=== PATIENT | female | born 1960 | race Caucasian/White ===

== ENCOUNTER → 2016-11-25 | Outpatient (CLI) | payer OTHER ==
[~2016-11-25] VITALS: Ht 154.9 cm; Wt 70.6 kg
[~2016-11-25] MED LIST: ACET-2247 PO; ACYC400T PO; AMLO-511 PO; ASCO500 PO; ASPI81 PO; ATOR40TA28 PO; BACTDSB PO; BISA10S PR; CEPH500 PO; CLOP75 PO; DOXY100C PO; DSS100 PO; GLIP5 PO; HEP5KI SQ; HYDR-3965 PO; HYDR-3971 PO; IBUP-1547 PO; IPRNEB IH; LOSA50TA37 PO; METF850T2 PO; MULT-264 PO; ONDA22I IM; PANT40TA25 PO; ZINC220 PO; [UNRECOGNIZED DRUG - CODE] IV
[2016-11-25 13:52] VITALS: BP 144/68
== END | disposition home or self-care (01) ==
LOC: HBOWC 12:49
PROVIDERS: ATTEND Emergency Medicine
DX: T87.89 Other complications of amputation stump (principal); E11.621 Type 2 diabetes mellitus with foot ulcer; L97.511 Non-pressure chronic ulcer of other part of right foot limited to breakdown of skin; E11.52 Type 2 diabetes mellitus with diabetic peripheral angiopathy with gangrene; I10 Essential (primary) hypertension; Y83.5 Amputation of limb(s) as the cause of abnormal reaction of the patient, or of later complication, without mention of misadventure at the time of the procedure
CPT/HCPCS: 11042

== ENCOUNTER → 2016-12-02 | Outpatient (CLI) | payer OTHER ==
[~2016-12-02] MED LIST changes: -ACET-2247 PO; -BISA10S PR; -DSS100 PO; -HEP5KI SQ; -HYDR-3965 PO; -HYDR-3971 PO; -IBUP-1547 PO; -IPRNEB IH; -ONDA22I IM; -ZINC220 PO; -[UNRECOGNIZED DRUG - CODE] IV
[2016-12-02 08:16] VITALS: BP 147/77
== END | disposition home or self-care (01) ==
LOC: HBOWC 07:19
PROVIDERS: ATTEND Emergency Medicine
DX: T87.89 Other complications of amputation stump (principal); E11.622 Type 2 diabetes mellitus with other skin ulcer; L97.511 Non-pressure chronic ulcer of other part of right foot limited to breakdown of skin; E11.52 Type 2 diabetes mellitus with diabetic peripheral angiopathy with gangrene; I10 Essential (primary) hypertension; Y83.8 Other surgical procedures as the cause of abnormal reaction of the patient, or of later complication, without mention of misadventure at the time of the procedure
CPT/HCPCS: 97597

== ENCOUNTER → 2016-12-08 | Outpatient (CLI) | payer OTHER | END | disposition home or self-care (01) | LOC: HBOWC 09:58 | PROVIDERS: ATTEND Emergency Medicine | DX: T87.89 Other complications of amputation stump (principal); E11.621 Type 2 diabetes mellitus with foot ulcer; L97.511 Non-pressure chronic ulcer of other part of right foot limited to breakdown of skin; I10 Essential (primary) hypertension; E11.52 Type 2 diabetes mellitus with diabetic peripheral angiopathy with gangrene; Y83.5 Amputation of limb(s) as the cause of abnormal reaction of the patient, or of later complication, without mention of misadventure at the time of the procedure | CPT/HCPCS: Z7606; Z7608 ==

== ENCOUNTER → 2016-12-10 | Outpatient (CLI) | payer OTHER | END | disposition home or self-care (01) | LOC: HBOWC 09:58 | PROVIDERS: ATTEND Emergency Medicine | DX: T86.828 Other complications of skin graft (allograft) (autograft) (principal); E11.621 Type 2 diabetes mellitus with foot ulcer; L97.511 Non-pressure chronic ulcer of other part of right foot limited to breakdown of skin; E11.52 Type 2 diabetes mellitus with diabetic peripheral angiopathy with gangrene; I10 Essential (primary) hypertension; Y83.2 Surgical operation with anastomosis, bypass or graft as the cause of abnormal reaction of the patient, or of later complication, without mention of misadventure at the time of the procedure | CPT/HCPCS: Z7606; Z7608 ==

== ENCOUNTER → 2016-12-11 | Outpatient (CLI) | payer OTHER ==
[~2016-12-11] MED LIST changes: +ACET-2247 PO; +ACETAMINOPHEN 500 MG TABLET PO ONE; +BISA10S PR; +CLOTRIMAZOLE 1% 15 GM CREAM TP ONE; +DSS100 PO; +HEP5KI SQ; +HYDR-3965 PO; +HYDR-3971 PO; +IBUP-1547 PO; +IPRNEB IH; +LIDOCAINE HCL/PF 2% 5 ML VIAL IM ONE; +ONDA22I IM; +ZINC220 PO; +[UNRECOGNIZED DRUG - CODE] IV
[2016-12-11 08:56] VITALS: BP 127/65
== END | disposition home or self-care (01) ==
LOC: HBOWC 08:28
PROVIDERS: ATTEND Emergency Medicine
DX: T87.89 Other complications of amputation stump (principal); E11.622 Type 2 diabetes mellitus with other skin ulcer; L97.511 Non-pressure chronic ulcer of other part of right foot limited to breakdown of skin; I10 Essential (primary) hypertension; E11.52 Type 2 diabetes mellitus with diabetic peripheral angiopathy with gangrene; Y83.8 Other surgical procedures as the cause of abnormal reaction of the patient, or of later complication, without mention of misadventure at the time of the procedure
CPT/HCPCS: 11042; J3490; Z7606; Z7608

== ENCOUNTER → 2016-12-14 | Outpatient (CLI) | payer OTHER ==
[~2016-12-14] MED LIST changes: -ACET-2247 PO; -ACETAMINOPHEN 500 MG TABLET PO ONE; -BISA10S PR; -CLOTRIMAZOLE 1% 15 GM CREAM TP ONE; -DSS100 PO; -HEP5KI SQ; -HYDR-3965 PO; -HYDR-3971 PO; -IBUP-1547 PO; -IPRNEB IH; -LIDOCAINE HCL/PF 2% 5 ML VIAL IM ONE; -ONDA22I IM; -ZINC220 PO; -[UNRECOGNIZED DRUG - CODE] IV
== END | disposition home or self-care (01) ==
LOC: HBOWC 08:59
PROVIDERS: ATTEND Emergency Medicine
DX: T87.89 Other complications of amputation stump (principal); E11.621 Type 2 diabetes mellitus with foot ulcer; E11.52 Type 2 diabetes mellitus with diabetic peripheral angiopathy with gangrene; L97.511 Non-pressure chronic ulcer of other part of right foot limited to breakdown of skin; I10 Essential (primary) hypertension; Y83.5 Amputation of limb(s) as the cause of abnormal reaction of the patient, or of later complication, without mention of misadventure at the time of the procedure
CPT/HCPCS: Z7606; Z7608

== ENCOUNTER → 2016-12-15 | Outpatient (CLI) | payer OTHER | END | disposition home or self-care (01) | LOC: HBOWC 09:51 | PROVIDERS: ATTEND Emergency Medicine | DX: T86.828 Other complications of skin graft (allograft) (autograft) (principal); E11.621 Type 2 diabetes mellitus with foot ulcer; L97.511 Non-pressure chronic ulcer of other part of right foot limited to breakdown of skin; E11.52 Type 2 diabetes mellitus with diabetic peripheral angiopathy with gangrene; Y83.2 Surgical operation with anastomosis, bypass or graft as the cause of abnormal reaction of the patient, or of later complication, without mention of misadventure at the time of the procedure | CPT/HCPCS: Z7606; Z7608 ==

== ENCOUNTER → 2016-12-16 | Outpatient (CLI) | payer OTHER | END | disposition home or self-care (01) | LOC: HBOWC 10:03 | PROVIDERS: ATTEND Emergency Medicine | DX: T87.89 Other complications of amputation stump (principal); E11.621 Type 2 diabetes mellitus with foot ulcer; L97.511 Non-pressure chronic ulcer of other part of right foot limited to breakdown of skin; I10 Essential (primary) hypertension; E11.52 Type 2 diabetes mellitus with diabetic peripheral angiopathy with gangrene; Y83.5 Amputation of limb(s) as the cause of abnormal reaction of the patient, or of later complication, without mention of misadventure at the time of the procedure | CPT/HCPCS: Z7606; Z7608 ==

== ENCOUNTER → 2016-12-17 | Outpatient (CLI) | payer OTHER | END | disposition home or self-care (01) | LOC: HBOWC 09:49 | PROVIDERS: ATTEND Emergency Medicine | DX: T86.828 Other complications of skin graft (allograft) (autograft) (principal); E11.621 Type 2 diabetes mellitus with foot ulcer; L97.511 Non-pressure chronic ulcer of other part of right foot limited to breakdown of skin; I10 Essential (primary) hypertension; E11.52 Type 2 diabetes mellitus with diabetic peripheral angiopathy with gangrene; Y83.8 Other surgical procedures as the cause of abnormal reaction of the patient, or of later complication, without mention of misadventure at the time of the procedure | CPT/HCPCS: Z7606; Z7608 ==

== ENCOUNTER → 2016-12-18 | Outpatient (CLI) | payer OTHER ==
[~2016-12-18] MED LIST changes: +CLOTRIMAZOLE 1% 15 GM CREAM TP ONE; +LIDOCAINE HCL 2% 5 ML JELLY TP ONE
[2016-12-18 10:04] VITALS: BP 106/58
== END | disposition home or self-care (01) ==
LOC: HBOWC 09:00
PROVIDERS: ATTEND Emergency Medicine
DX: T87.89 Other complications of amputation stump (principal); E11.621 Type 2 diabetes mellitus with foot ulcer; L97.511 Non-pressure chronic ulcer of other part of right foot limited to breakdown of skin; E11.52 Type 2 diabetes mellitus with diabetic peripheral angiopathy with gangrene; I10 Essential (primary) hypertension; Y83.5 Amputation of limb(s) as the cause of abnormal reaction of the patient, or of later complication, without mention of misadventure at the time of the procedure
CPT/HCPCS: 97597; Z7606; Z7608

== ENCOUNTER → 2016-12-21 | Outpatient (CLI) | payer OTHER ==
[~2016-12-21] MED LIST changes: -CLOTRIMAZOLE 1% 15 GM CREAM TP ONE; -LIDOCAINE HCL 2% 5 ML JELLY TP ONE
== END | disposition home or self-care (01) ==
LOC: HBOWC 10:04
PROVIDERS: ATTEND Emergency Medicine
DX: T87.89 Other complications of amputation stump (principal); E11.621 Type 2 diabetes mellitus with foot ulcer; L97.511 Non-pressure chronic ulcer of other part of right foot limited to breakdown of skin; I10 Essential (primary) hypertension; E11.51 Type 2 diabetes mellitus with diabetic peripheral angiopathy without gangrene; Y83.5 Amputation of limb(s) as the cause of abnormal reaction of the patient, or of later complication, without mention of misadventure at the time of the procedure

== ENCOUNTER → 2016-12-22 | Outpatient (CLI) | payer OTHER | END | disposition home or self-care (01) | LOC: HBOWC 10:09 | PROVIDERS: ATTEND Emergency Medicine Undersea and Hyperbaric Medicine | DX: T87.89 Other complications of amputation stump (principal); E11.621 Type 2 diabetes mellitus with foot ulcer; L97.511 Non-pressure chronic ulcer of other part of right foot limited to breakdown of skin; I10 Essential (primary) hypertension; E11.51 Type 2 diabetes mellitus with diabetic peripheral angiopathy without gangrene; Y83.5 Amputation of limb(s) as the cause of abnormal reaction of the patient, or of later complication, without mention of misadventure at the time of the procedure ==

== ENCOUNTER → 2016-12-23 | Outpatient (CLI) | payer OTHER | END | disposition home or self-care (01) | LOC: HBOWC 10:32 | PROVIDERS: ATTEND Emergency Medicine | DX: T87.89 Other complications of amputation stump (principal); E11.621 Type 2 diabetes mellitus with foot ulcer; L97.511 Non-pressure chronic ulcer of other part of right foot limited to breakdown of skin; I10 Essential (primary) hypertension; E11.51 Type 2 diabetes mellitus with diabetic peripheral angiopathy without gangrene; Y83.5 Amputation of limb(s) as the cause of abnormal reaction of the patient, or of later complication, without mention of misadventure at the time of the procedure | CPT/HCPCS: Z7606; Z7608 ==

== ENCOUNTER → 2016-12-24 | Outpatient (CLI) | payer OTHER | END | disposition home or self-care (01) | LOC: HBOWC 10:06 | PROVIDERS: ATTEND Emergency Medicine | DX: T86.828 Other complications of skin graft (allograft) (autograft) (principal); E11.621 Type 2 diabetes mellitus with foot ulcer; L97.511 Non-pressure chronic ulcer of other part of right foot limited to breakdown of skin; E11.52 Type 2 diabetes mellitus with diabetic peripheral angiopathy with gangrene; I10 Essential (primary) hypertension; Y83.2 Surgical operation with anastomosis, bypass or graft as the cause of abnormal reaction of the patient, or of later complication, without mention of misadventure at the time of the procedure | CPT/HCPCS: Z7606; Z7608 ==

== ENCOUNTER → 2016-12-25 | Outpatient (CLI) | payer OTHER ==
[2016-12-25 10:37] VITALS: BP 151/62
== END | disposition home or self-care (01) ==
LOC: HBOWC 10:08
PROVIDERS: ATTEND Emergency Medicine
DX: T87.89 Other complications of amputation stump (principal); E11.621 Type 2 diabetes mellitus with foot ulcer; L97.511 Non-pressure chronic ulcer of other part of right foot limited to breakdown of skin; I10 Essential (primary) hypertension; E11.51 Type 2 diabetes mellitus with diabetic peripheral angiopathy without gangrene; Y83.5 Amputation of limb(s) as the cause of abnormal reaction of the patient, or of later complication, without mention of misadventure at the time of the procedure
CPT/HCPCS: 97597; G0277

== ENCOUNTER → 2016-12-28 | Outpatient (CLI) | payer OTHER | END | disposition home or self-care (01) | LOC: HBOWC 09:24 | PROVIDERS: ATTEND Emergency Medicine Undersea and Hyperbaric Medicine | DX: T87.89 Other complications of amputation stump (principal); E11.621 Type 2 diabetes mellitus with foot ulcer; L97.511 Non-pressure chronic ulcer of other part of right foot limited to breakdown of skin; I10 Essential (primary) hypertension; E11.52 Type 2 diabetes mellitus with diabetic peripheral angiopathy with gangrene; Y83.5 Amputation of limb(s) as the cause of abnormal reaction of the patient, or of later complication, without mention of misadventure at the time of the procedure | CPT/HCPCS: Z7606; Z7608 ==

== ENCOUNTER → 2016-12-29 | Outpatient (CLI) | payer OTHER | END | disposition home or self-care (01) | LOC: HBOWC 07:46 | PROVIDERS: ATTEND Emergency Medicine Undersea and Hyperbaric Medicine | DX: T86.828 Other complications of skin graft (allograft) (autograft) (principal); E11.621 Type 2 diabetes mellitus with foot ulcer; L97.511 Non-pressure chronic ulcer of other part of right foot limited to breakdown of skin; I10 Essential (primary) hypertension; E11.52 Type 2 diabetes mellitus with diabetic peripheral angiopathy with gangrene; Y83.8 Other surgical procedures as the cause of abnormal reaction of the patient, or of later complication, without mention of misadventure at the time of the procedure ==

== ENCOUNTER → 2016-12-30 | Outpatient (CLI) | payer OTHER ==
[~2016-12-30] MED LIST changes: -BACTDSB PO; -DOXY100C PO
== END | disposition home or self-care (01) ==
LOC: HBOWC 07:39
PROVIDERS: ATTEND Emergency Medicine
DX: T86.828 Other complications of skin graft (allograft) (autograft) (principal); E11.621 Type 2 diabetes mellitus with foot ulcer; L97.511 Non-pressure chronic ulcer of other part of right foot limited to breakdown of skin; I10 Essential (primary) hypertension; E11.52 Type 2 diabetes mellitus with diabetic peripheral angiopathy with gangrene; Y83.2 Surgical operation with anastomosis, bypass or graft as the cause of abnormal reaction of the patient, or of later complication, without mention of misadventure at the time of the procedure

== ENCOUNTER → 2016-12-31 | Outpatient (CLI) | payer OTHER ==
[~2016-12-31] MED LIST changes: +BACTDSB PO; +DOXY100C PO
[2017-01-01 11:17] VITALS: BP 138/65
== END | disposition home or self-care (01) ==
LOC: HBOWC 07:35
PROVIDERS: ATTEND Emergency Medicine
DX: T86.828 Other complications of skin graft (allograft) (autograft) (principal); E11.621 Type 2 diabetes mellitus with foot ulcer; L97.511 Non-pressure chronic ulcer of other part of right foot limited to breakdown of skin; I10 Essential (primary) hypertension; E11.52 Type 2 diabetes mellitus with diabetic peripheral angiopathy with gangrene; Y83.8 Other surgical procedures as the cause of abnormal reaction of the patient, or of later complication, without mention of misadventure at the time of the procedure

== ENCOUNTER → 2017-01-01 | Outpatient (CLI) | payer OTHER ==
[~2017-01-01] MED LIST changes: -BACTDSB PO; -DOXY100C PO
[2017-01-01 10:45] VITALS: BP 138/65
== END | disposition home or self-care (01) ==
LOC: HBOWC 07:49
PROVIDERS: ATTEND Emergency Medicine
DX: T86.828 Other complications of skin graft (allograft) (autograft) (principal); E11.621 Type 2 diabetes mellitus with foot ulcer; L97.511 Non-pressure chronic ulcer of other part of right foot limited to breakdown of skin; I10 Essential (primary) hypertension; E11.52 Type 2 diabetes mellitus with diabetic peripheral angiopathy with gangrene; Y83.2 Surgical operation with anastomosis, bypass or graft as the cause of abnormal reaction of the patient, or of later complication, without mention of misadventure at the time of the procedure
CPT/HCPCS: 15275; Q4106; Z7606; Z7608

== ENCOUNTER → 2017-01-04 | Outpatient (CLI) | payer OTHER ==
[2017-01-04 12:09] VITALS: BP 122/64
== END | disposition home or self-care (01) ==
LOC: HBOWC 08:13
PROVIDERS: ATTEND Emergency Medicine
DX: T86.828 Other complications of skin graft (allograft) (autograft) (principal); E11.621 Type 2 diabetes mellitus with foot ulcer; L97.511 Non-pressure chronic ulcer of other part of right foot limited to breakdown of skin; E11.52 Type 2 diabetes mellitus with diabetic peripheral angiopathy with gangrene; I10 Essential (primary) hypertension; Y83.8 Other surgical procedures as the cause of abnormal reaction of the patient, or of later complication, without mention of misadventure at the time of the procedure
CPT/HCPCS: Z7606; Z7608

== ENCOUNTER → 2017-01-05 | Outpatient (CLI) | payer OTHER | END | disposition home or self-care (01) | LOC: HBOWC 07:38 | PROVIDERS: ATTEND Emergency Medicine | DX: T87.89 Other complications of amputation stump (principal); E11.621 Type 2 diabetes mellitus with foot ulcer; L97.511 Non-pressure chronic ulcer of other part of right foot limited to breakdown of skin; I10 Essential (primary) hypertension; E11.52 Type 2 diabetes mellitus with diabetic peripheral angiopathy with gangrene; Y83.5 Amputation of limb(s) as the cause of abnormal reaction of the patient, or of later complication, without mention of misadventure at the time of the procedure | CPT/HCPCS: Z7606; Z7608 ==

== ENCOUNTER → 2017-01-06 | Outpatient (CLI) | payer OTHER | END | disposition home or self-care (01) | LOC: HBOWC 07:49 | PROVIDERS: ATTEND Emergency Medicine | DX: T87.89 Other complications of amputation stump (principal); E11.621 Type 2 diabetes mellitus with foot ulcer; L97.511 Non-pressure chronic ulcer of other part of right foot limited to breakdown of skin; E11.52 Type 2 diabetes mellitus with diabetic peripheral angiopathy with gangrene; Y83.5 Amputation of limb(s) as the cause of abnormal reaction of the patient, or of later complication, without mention of misadventure at the time of the procedure | CPT/HCPCS: Z7606; Z7608 ==

== ENCOUNTER → 2017-01-07 | Outpatient (CLI) | payer OTHER | END | disposition home or self-care (01) | LOC: HBOWC 07:47 | PROVIDERS: ATTEND Emergency Medicine | DX: T87.89 Other complications of amputation stump (principal); E11.621 Type 2 diabetes mellitus with foot ulcer; L97.511 Non-pressure chronic ulcer of other part of right foot limited to breakdown of skin; E11.52 Type 2 diabetes mellitus with diabetic peripheral angiopathy with gangrene; I10 Essential (primary) hypertension; Y83.5 Amputation of limb(s) as the cause of abnormal reaction of the patient, or of later complication, without mention of misadventure at the time of the procedure | CPT/HCPCS: Z7606; Z7608 ==

== ENCOUNTER → 2017-01-08 | Outpatient (CLI) | payer OTHER ==
[2017-01-08 10:51] VITALS: BP 137/70
== END | disposition home or self-care (01) ==
LOC: HBOWC 07:43
PROVIDERS: ATTEND Emergency Medicine
DX: T86.828 Other complications of skin graft (allograft) (autograft) (principal); E11.621 Type 2 diabetes mellitus with foot ulcer; L97.511 Non-pressure chronic ulcer of other part of right foot limited to breakdown of skin; I10 Essential (primary) hypertension; E11.51 Type 2 diabetes mellitus with diabetic peripheral angiopathy without gangrene; Y83.2 Surgical operation with anastomosis, bypass or graft as the cause of abnormal reaction of the patient, or of later complication, without mention of misadventure at the time of the procedure
CPT/HCPCS: Z7606; Z7608

== ENCOUNTER → 2017-01-11 | Outpatient (CLI) | payer OTHER | END | disposition home or self-care (01) | LOC: HBOWC 07:29 | PROVIDERS: ATTEND Emergency Medicine | DX: T87.89 Other complications of amputation stump (principal); E11.621 Type 2 diabetes mellitus with foot ulcer; L97.511 Non-pressure chronic ulcer of other part of right foot limited to breakdown of skin; I10 Essential (primary) hypertension; E11.52 Type 2 diabetes mellitus with diabetic peripheral angiopathy with gangrene; Y83.5 Amputation of limb(s) as the cause of abnormal reaction of the patient, or of later complication, without mention of misadventure at the time of the procedure | CPT/HCPCS: Z7606; Z7608 ==

== ENCOUNTER → 2017-01-13 | Outpatient (CLI) | payer OTHER ==
[~2017-01-13] MED LIST changes: +BACTDSB PO
== END | disposition home or self-care (01) ==
LOC: HBOWC 07:27
PROVIDERS: ATTEND Emergency Medicine
DX: T87.89 Other complications of amputation stump (principal); L97.511 Non-pressure chronic ulcer of other part of right foot limited to breakdown of skin; I10 Essential (primary) hypertension; E11.52 Type 2 diabetes mellitus with diabetic peripheral angiopathy with gangrene; Y83.5 Amputation of limb(s) as the cause of abnormal reaction of the patient, or of later complication, without mention of misadventure at the time of the procedure
CPT/HCPCS: Z7606; Z7608

== ENCOUNTER → 2017-01-14 | Outpatient (CLI) | payer OTHER ==
[~2017-01-14] MED LIST changes: +DOXY100C PO
== END | disposition home or self-care (01) ==
LOC: HBOWC 07:31
PROVIDERS: ATTEND Emergency Medicine
DX: T87.89 Other complications of amputation stump (principal); E11.621 Type 2 diabetes mellitus with foot ulcer; L97.511 Non-pressure chronic ulcer of other part of right foot limited to breakdown of skin; I10 Essential (primary) hypertension; E11.52 Type 2 diabetes mellitus with diabetic peripheral angiopathy with gangrene; Y83.5 Amputation of limb(s) as the cause of abnormal reaction of the patient, or of later complication, without mention of misadventure at the time of the procedure
CPT/HCPCS: Z7606; Z7608

== ENCOUNTER → 2017-01-15 | Outpatient (CLI) | payer OTHER ==
[~2017-01-15] MED LIST changes: -DOXY100C PO
[2017-01-15 11:27] VITALS: BP 126/69
== END | disposition home or self-care (01) ==
LOC: HBOWC 07:34
PROVIDERS: ATTEND Emergency Medicine
DX: T87.89 Other complications of amputation stump (principal); E11.621 Type 2 diabetes mellitus with foot ulcer; L97.511 Non-pressure chronic ulcer of other part of right foot limited to breakdown of skin; I10 Essential (primary) hypertension; E11.52 Type 2 diabetes mellitus with diabetic peripheral angiopathy with gangrene; Y83.5 Amputation of limb(s) as the cause of abnormal reaction of the patient, or of later complication, without mention of misadventure at the time of the procedure
CPT/HCPCS: 15271; Q4106; Z7606; Z7608

== ENCOUNTER → 2017-01-18 | Outpatient (CLI) | payer OTHER | END | disposition home or self-care (01) | LOC: HBOWC 07:45 | PROVIDERS: ATTEND Emergency Medicine | DX: T87.89 Other complications of amputation stump (principal); E11.621 Type 2 diabetes mellitus with foot ulcer; L97.511 Non-pressure chronic ulcer of other part of right foot limited to breakdown of skin; I10 Essential (primary) hypertension; E11.52 Type 2 diabetes mellitus with diabetic peripheral angiopathy with gangrene; Y83.5 Amputation of limb(s) as the cause of abnormal reaction of the patient, or of later complication, without mention of misadventure at the time of the procedure | CPT/HCPCS: Z7606; Z7608 ==

== ENCOUNTER → 2017-01-19 | Outpatient (CLI) | payer OTHER ==
[~2017-01-19] MED LIST changes: +CHLORHEXIDINE GLUCONATE 4% 118 ML TOPICAL LIQUID TP ONE; +DOXY100C PO
== END | disposition home or self-care (01) ==
LOC: HBOWC 07:39
PROVIDERS: ATTEND Emergency Medicine Undersea and Hyperbaric Medicine
DX: T87.89 Other complications of amputation stump (principal); E11.621 Type 2 diabetes mellitus with foot ulcer; L97.511 Non-pressure chronic ulcer of other part of right foot limited to breakdown of skin; E11.52 Type 2 diabetes mellitus with diabetic peripheral angiopathy with gangrene; I10 Essential (primary) hypertension; Y83.5 Amputation of limb(s) as the cause of abnormal reaction of the patient, or of later complication, without mention of misadventure at the time of the procedure
CPT/HCPCS: Z7606; Z7608

== ENCOUNTER → 2017-01-20 | Outpatient (CLI) | payer OTHER ==
[~2017-01-20] MED LIST changes: -CEPH500 PO; -CHLORHEXIDINE GLUCONATE 4% 118 ML TOPICAL LIQUID TP ONE
== END | disposition home or self-care (01) ==
LOC: HBOWC 07:35
PROVIDERS: ATTEND Emergency Medicine Undersea and Hyperbaric Medicine
DX: T87.89 Other complications of amputation stump (principal); E11.621 Type 2 diabetes mellitus with foot ulcer; L97.511 Non-pressure chronic ulcer of other part of right foot limited to breakdown of skin; I10 Essential (primary) hypertension; E11.52 Type 2 diabetes mellitus with diabetic peripheral angiopathy with gangrene; Y83.5 Amputation of limb(s) as the cause of abnormal reaction of the patient, or of later complication, without mention of misadventure at the time of the procedure
CPT/HCPCS: Z7606; Z7608

== ENCOUNTER → 2017-01-21 | Outpatient (CLI) | payer OTHER | END | disposition home or self-care (01) | LOC: HBOWC 07:43 | PROVIDERS: ATTEND Emergency Medicine | DX: T87.89 Other complications of amputation stump (principal); E11.621 Type 2 diabetes mellitus with foot ulcer; L97.511 Non-pressure chronic ulcer of other part of right foot limited to breakdown of skin; E11.52 Type 2 diabetes mellitus with diabetic peripheral angiopathy with gangrene; I10 Essential (primary) hypertension; Y83.5 Amputation of limb(s) as the cause of abnormal reaction of the patient, or of later complication, without mention of misadventure at the time of the procedure | CPT/HCPCS: Z7606; Z7608 ==

== ENCOUNTER → 2017-01-22 | Outpatient (CLI) | payer OTHER ==
[2017-01-22 10:46] VITALS: BP 105/64
== END | disposition home or self-care (01) ==
LOC: HBOWC 07:52
PROVIDERS: ATTEND Emergency Medicine Undersea and Hyperbaric Medicine
DX: T86.828 Other complications of skin graft (allograft) (autograft) (principal); E11.621 Type 2 diabetes mellitus with foot ulcer; L97.511 Non-pressure chronic ulcer of other part of right foot limited to breakdown of skin; E11.52 Type 2 diabetes mellitus with diabetic peripheral angiopathy with gangrene; I10 Essential (primary) hypertension; Y83.2 Surgical operation with anastomosis, bypass or graft as the cause of abnormal reaction of the patient, or of later complication, without mention of misadventure at the time of the procedure
CPT/HCPCS: G0463; Z7606; Z7608

== ENCOUNTER → 2017-01-25 | Outpatient (CLI) | payer OTHER | END | disposition home or self-care (01) | LOC: HBOWC 07:25 | PROVIDERS: ATTEND Emergency Medicine | DX: T87.89 Other complications of amputation stump (principal); E11.621 Type 2 diabetes mellitus with foot ulcer; L97.511 Non-pressure chronic ulcer of other part of right foot limited to breakdown of skin; I10 Essential (primary) hypertension; E11.52 Type 2 diabetes mellitus with diabetic peripheral angiopathy with gangrene; Z86.14 Personal history of Methicillin resistant Staphylococcus aureus infection; Y83.5 Amputation of limb(s) as the cause of abnormal reaction of the patient, or of later complication, without mention of misadventure at the time of the procedure | CPT/HCPCS: Z7606; Z7608 ==

== ENCOUNTER → 2017-01-26 | Outpatient (CLI) | payer OTHER | END | disposition home or self-care (01) | LOC: HBOWC 07:44 | PROVIDERS: ATTEND Emergency Medicine | DX: T87.89 Other complications of amputation stump (principal); E11.621 Type 2 diabetes mellitus with foot ulcer; L97.511 Non-pressure chronic ulcer of other part of right foot limited to breakdown of skin; I10 Essential (primary) hypertension; E11.52 Type 2 diabetes mellitus with diabetic peripheral angiopathy with gangrene; Z86.14 Personal history of Methicillin resistant Staphylococcus aureus infection; Y83.5 Amputation of limb(s) as the cause of abnormal reaction of the patient, or of later complication, without mention of misadventure at the time of the procedure | CPT/HCPCS: Z7606; Z7608 ==

== ENCOUNTER → 2017-01-27 | Outpatient (CLI) | payer OTHER | END | disposition home or self-care (01) | LOC: HBOWC 07:38 | PROVIDERS: ATTEND Emergency Medicine | DX: T87.89 Other complications of amputation stump (principal); E11.621 Type 2 diabetes mellitus with foot ulcer; L97.511 Non-pressure chronic ulcer of other part of right foot limited to breakdown of skin; I10 Essential (primary) hypertension; E11.52 Type 2 diabetes mellitus with diabetic peripheral angiopathy with gangrene; Z86.14 Personal history of Methicillin resistant Staphylococcus aureus infection; Y83.5 Amputation of limb(s) as the cause of abnormal reaction of the patient, or of later complication, without mention of misadventure at the time of the procedure | CPT/HCPCS: Z7606; Z7608 ==

== ENCOUNTER → 2017-01-28 | Outpatient (CLI) | payer OTHER | END | disposition home or self-care (01) | LOC: HBOWC 07:27 | PROVIDERS: ATTEND Emergency Medicine | DX: T87.89 Other complications of amputation stump (principal); E11.621 Type 2 diabetes mellitus with foot ulcer; L97.511 Non-pressure chronic ulcer of other part of right foot limited to breakdown of skin; I10 Essential (primary) hypertension; E11.52 Type 2 diabetes mellitus with diabetic peripheral angiopathy with gangrene; Z86.14 Personal history of Methicillin resistant Staphylococcus aureus infection; Y83.5 Amputation of limb(s) as the cause of abnormal reaction of the patient, or of later complication, without mention of misadventure at the time of the procedure | CPT/HCPCS: Z7606; Z7608 ==

== ENCOUNTER → 2017-01-29 | Outpatient (CLI) | payer OTHER ==
[2017-01-29 10:58] VITALS: BP 121/73
== END | disposition home or self-care (01) ==
LOC: HBOWC 07:42
PROVIDERS: ATTEND Emergency Medicine
DX: T87.89 Other complications of amputation stump (principal); E11.621 Type 2 diabetes mellitus with foot ulcer; L97.513 Non-pressure chronic ulcer of other part of right foot with necrosis of muscle; B95.62 Methicillin resistant Staphylococcus aureus infection as the cause of diseases classified elsewhere; E11.52 Type 2 diabetes mellitus with diabetic peripheral angiopathy with gangrene; I10 Essential (primary) hypertension; Y83.5 Amputation of limb(s) as the cause of abnormal reaction of the patient, or of later complication, without mention of misadventure at the time of the procedure
CPT/HCPCS: 97597; Z7606; Z7608

== ENCOUNTER → 2017-02-01 | Outpatient (CLI) | payer OTHER ==
[~2017-02-01] MED LIST changes: -BACTDSB PO
== END | disposition home or self-care (01) ==
LOC: HBOWC 07:26
PROVIDERS: ATTEND Emergency Medicine
DX: T86.828 Other complications of skin graft (allograft) (autograft) (principal); E11.621 Type 2 diabetes mellitus with foot ulcer; L97.511 Non-pressure chronic ulcer of other part of right foot limited to breakdown of skin; I10 Essential (primary) hypertension; Z86.14 Personal history of Methicillin resistant Staphylococcus aureus infection; E11.52 Type 2 diabetes mellitus with diabetic peripheral angiopathy with gangrene; Y83.2 Surgical operation with anastomosis, bypass or graft as the cause of abnormal reaction of the patient, or of later complication, without mention of misadventure at the time of the procedure
CPT/HCPCS: Z7606; Z7608

== ENCOUNTER → 2017-02-02 | Outpatient (CLI) | payer OTHER | END | disposition home or self-care (01) | LOC: HBOWC 07:26 | PROVIDERS: ATTEND Emergency Medicine | DX: T87.89 Other complications of amputation stump (principal); E11.621 Type 2 diabetes mellitus with foot ulcer; L97.511 Non-pressure chronic ulcer of other part of right foot limited to breakdown of skin; I10 Essential (primary) hypertension; E11.52 Type 2 diabetes mellitus with diabetic peripheral angiopathy with gangrene; Z86.14 Personal history of Methicillin resistant Staphylococcus aureus infection; Y83.8 Other surgical procedures as the cause of abnormal reaction of the patient, or of later complication, without mention of misadventure at the time of the procedure | CPT/HCPCS: Z7606; Z7608 ==

== ENCOUNTER → 2017-02-03 | Outpatient (CLI) | payer OTHER | END | disposition home or self-care (01) | LOC: HBOWC 07:38 | PROVIDERS: ATTEND Emergency Medicine | DX: T87.89 Other complications of amputation stump (principal); E11.621 Type 2 diabetes mellitus with foot ulcer; L97.511 Non-pressure chronic ulcer of other part of right foot limited to breakdown of skin; I10 Essential (primary) hypertension; E11.52 Type 2 diabetes mellitus with diabetic peripheral angiopathy with gangrene; Z86.14 Personal history of Methicillin resistant Staphylococcus aureus infection; Y83.5 Amputation of limb(s) as the cause of abnormal reaction of the patient, or of later complication, without mention of misadventure at the time of the procedure | CPT/HCPCS: Z7606; Z7608 ==

== ENCOUNTER → 2017-02-05 | Outpatient (CLI) | payer OTHER ==
[2017-02-05 14:39] VITALS: BP 131/74
== END | disposition home or self-care (01) ==
LOC: HBOWC 14:29
PROVIDERS: ATTEND Emergency Medicine
DX: T87.89 Other complications of amputation stump (principal); E11.621 Type 2 diabetes mellitus with foot ulcer; L97.511 Non-pressure chronic ulcer of other part of right foot limited to breakdown of skin; E11.52 Type 2 diabetes mellitus with diabetic peripheral angiopathy with gangrene; I10 Essential (primary) hypertension; Y83.5 Amputation of limb(s) as the cause of abnormal reaction of the patient, or of later complication, without mention of misadventure at the time of the procedure
CPT/HCPCS: 97597

== ENCOUNTER → 2017-02-22 | Outpatient (CLI) | payer OTHER ==
[2017-02-22 11:35] VITALS: BP 121/77
== END | disposition home or self-care (01) ==
LOC: HBOWC 11:08
PROVIDERS: ATTEND Emergency Medicine
DX: T87.89 Other complications of amputation stump (principal); E11.621 Type 2 diabetes mellitus with foot ulcer; L97.511 Non-pressure chronic ulcer of other part of right foot limited to breakdown of skin; E11.52 Type 2 diabetes mellitus with diabetic peripheral angiopathy with gangrene; I10 Essential (primary) hypertension; Z86.14 Personal history of Methicillin resistant Staphylococcus aureus infection; Y83.5 Amputation of limb(s) as the cause of abnormal reaction of the patient, or of later complication, without mention of misadventure at the time of the procedure
CPT/HCPCS: 97597

== ENCOUNTER → 2017-03-08 | Outpatient (CLI) | payer OTHER ==
[~2017-03-08] MED LIST changes: -DOXY100C PO
[2017-03-08 15:32] VITALS: BP 117/63
== END | disposition home or self-care (01) ==
LOC: HBOWC 13:57
PROVIDERS: ATTEND Emergency Medicine
DX: T87.89 Other complications of amputation stump (principal); E11.621 Type 2 diabetes mellitus with foot ulcer; L97.511 Non-pressure chronic ulcer of other part of right foot limited to breakdown of skin; E11.52 Type 2 diabetes mellitus with diabetic peripheral angiopathy with gangrene; Z86.14 Personal history of Methicillin resistant Staphylococcus aureus infection; I10 Essential (primary) hypertension; Y83.5 Amputation of limb(s) as the cause of abnormal reaction of the patient, or of later complication, without mention of misadventure at the time of the procedure
CPT/HCPCS: 97597

== ENCOUNTER → 2017-03-24 | Outpatient (CLI) | payer OTHER ==
[2017-03-24 14:04] VITALS: BP 123/78
== END | disposition home or self-care (01) ==
LOC: HBOWC 13:34
PROVIDERS: ATTEND Emergency Medicine
DX: T87.89 Other complications of amputation stump (principal); E11.621 Type 2 diabetes mellitus with foot ulcer; L97.514 Non-pressure chronic ulcer of other part of right foot with necrosis of bone; I10 Essential (primary) hypertension; Z86.14 Personal history of Methicillin resistant Staphylococcus aureus infection; Y83.5 Amputation of limb(s) as the cause of abnormal reaction of the patient, or of later complication, without mention of misadventure at the time of the procedure; E11.52 Type 2 diabetes mellitus with diabetic peripheral angiopathy with gangrene
CPT/HCPCS: 97597

== ENCOUNTER → 2017-04-07 | Outpatient (CLI) | payer OTHER ==
[2017-04-07 13:39] VITALS: BP 128/90
== END | disposition home or self-care (01) ==
LOC: HBOWC 12:58
PROVIDERS: ATTEND Emergency Medicine Undersea and Hyperbaric Medicine
DX: T87.89 Other complications of amputation stump (principal); E11.621 Type 2 diabetes mellitus with foot ulcer; L97.511 Non-pressure chronic ulcer of other part of right foot limited to breakdown of skin; I10 Essential (primary) hypertension; E11.52 Type 2 diabetes mellitus with diabetic peripheral angiopathy with gangrene; Z86.14 Personal history of Methicillin resistant Staphylococcus aureus infection; Y83.5 Amputation of limb(s) as the cause of abnormal reaction of the patient, or of later complication, without mention of misadventure at the time of the procedure
CPT/HCPCS: 97597

== ENCOUNTER → 2017-04-21 | Outpatient (CLI) | payer OTHER ==
[~2017-04-21] MED LIST changes: +ACET-2247 PO; +BACTDSB PO; +BISA10S PR; +CEPH500 PO; +DOXY100C PO; +DSS100 PO; +HEP5KI SQ; +HYDR-3965 PO; +HYDR-3971 PO; +IBUP-1547 PO; +IPRNEB IH; +ONDA22I IM; +PIPE3.3712 IV; +ZINC220 PO; +[UNRECOGNIZED DRUG - CODE] IV
[2017-04-21 15:38] VITALS: BP 108/72
== END | disposition home or self-care (01) ==
LOC: HBOWC 14:08
PROVIDERS: ATTEND Emergency Medicine
DX: T87.89 Other complications of amputation stump (principal); E11.621 Type 2 diabetes mellitus with foot ulcer; L97.511 Non-pressure chronic ulcer of other part of right foot limited to breakdown of skin; I87.2 Venous insufficiency (chronic) (peripheral); E11.52 Type 2 diabetes mellitus with diabetic peripheral angiopathy with gangrene; I10 Essential (primary) hypertension; B35.1 Tinea unguium; L60.3 Nail dystrophy; Z86.14 Personal history of Methicillin resistant Staphylococcus aureus infection; Y83.5 Amputation of limb(s) as the cause of abnormal reaction of the patient, or of later complication, without mention of misadventure at the time of the procedure
CPT/HCPCS: 97597

== ENCOUNTER → 2017-05-05 | Outpatient (CLI) | payer OTHER ==
[~2017-05-05] MED LIST changes: -ACET-2247 PO; -BACTDSB PO; -BISA10S PR; -CEPH500 PO; -DOXY100C PO; -DSS100 PO; -HEP5KI SQ; -HYDR-3965 PO; -HYDR-3971 PO; -IBUP-1547 PO; -IPRNEB IH; -ONDA22I IM; -PIPE3.3712 IV; -ZINC220 PO; -[UNRECOGNIZED DRUG - CODE] IV
[2017-05-05 15:00] VITALS: BP 153/74
== END | disposition home or self-care (01) ==
LOC: HBOWC 14:34
PROVIDERS: ATTEND Emergency Medicine
DX: T87.89 Other complications of amputation stump (principal); I10 Essential (primary) hypertension; L60.3 Nail dystrophy; L97.511 Non-pressure chronic ulcer of other part of right foot limited to breakdown of skin; Z86.14 Personal history of Methicillin resistant Staphylococcus aureus infection; B35.1 Tinea unguium; E11.52 Type 2 diabetes mellitus with diabetic peripheral angiopathy with gangrene; I87.2 Venous insufficiency (chronic) (peripheral); Y83.5 Amputation of limb(s) as the cause of abnormal reaction of the patient, or of later complication, without mention of misadventure at the time of the procedure
CPT/HCPCS: 97597